=== PATIENT | female | born 1945 | race Caucasian/White ===

== ENCOUNTER 2017-09-11 10:38 | Emergency (ER) | payer OTHER ==
--- NOTE | 2017-09-11 11:13 | EDPHY ---
H & P Stated Complaint: RLQ ABD PAIN SINCE SATURDAY/ Time Seen by Provider: 09/11/17 10:51 HPI/ROS: CHIEF COMPLAINT: Right lower quadrant pain HISTORY OF PRESENT ILLNESS: 72-year-old female s/p cesar 6wks ago presents with right lower quadrant pain. Onset of pain 2 days ago. The pain is constant and increases in the sitting position and is alleviated while supine. The pain is improved today. Normal appetite. No associated symptoms. REVIEW OF SYSTEMS: complete 10 point ROS negative except at noted in the HPI - Personal History Current Tetanus/Diphtheria Vaccine: Yes - Medical/Surgical History Hx Asthma: No Hx Chronic Respiratory Disease: No Hx Diabetes: No Hx Cardiac Disease: No Hx Renal Disease: No Hx Cirrhosis: No Hx Alcoholism: No Hx HIV/AIDS: No Hx Splenectomy or Spleen Trauma: No Other PMH: CHOLY - Social History Smoking Status: Never smoked - Physical Exam Exam: General Appearance: Alert, pleasant Eyes: Pupils equal and round, no conjunctival pallor ENT, Mouth: Mucous membranes moist Neck: Normal inspection Respiratory: Lungs are clear to auscultation Cardiovascular: Regular rate and rhythm Gastrointestinal: Abdomen is soft, mild right lower quadrant tenderness Neurological: A&O, nonfocal, normal gait Skin: Warm and dry Extremities: Normal inspection Psychiatric: Mood and affect normal Constitutional: Initial Vital Signs Temperature (C) 37 C 09/11/17 10:43 Heart Rate 71 09/11/17 10:43 Respiratory Rate 16 09/11/17 10:43 Blood Pressure 127/82 H 09/11/17 10:43 O2 Sat (%) 95 09/11/17 10:43 O2 Delivery Mode Room Air Allergies/Adverse Reactions: amoxicillin [From Augmentin] Allergy (Verified 09/11/17 10:41) clavulanic acid [From Augmentin] Allergy (Verified 09/11/17 10:41) codeine Allergy (Verified 09/11/17 10:41) Home Medications: Medication Instructions Recorded Reevj-Muaes-Basz 10-160-12.5MG 09/11/17 Aspirin 81mg (*) 09/11/17 Esomeprazole Magnesium 09/11/17 Klor-Con M10 09/11/17 Metoprolol Succinate 09/11/17 Raloxifene HCl 09/11/17 Vesicare 09/11/17 Medical Decision Making - Diagnostics Imaging Results: Abdomen CT 09/11/17 11:38 Impression: 1. Post cholecystectomy without evidence of acute intra-abdominal pathology 2. Mild inflammatory changes associated with right subcostal surgical incision. No discrete fluid. Findings were communicated by telephone with Dr. LILLIE WHITESIDE at 09/11/2017 12: 26 ED Course/Re-evaluation: This patient presents with right lower quadrant pain, concern for possible appendicitis. Clinically there is no evidence of a postoperative infection. Declines pain medication. CT scan of the abdomen pelvis obtained and is unremarkable. Abdominal exam remains benign and unchanged. The patient will follow up with primary care physician. Ibuprofen instructions given. Differential Diagnosis: Differential diagnosis includes though it is not limited to appendicitis, cholecystitis, diverticulitis, pyelonephritis, bowel perforation, small bowel obstruction. - Data Points Laboratory Results: Laboratory Results 09/11/17 11:00 09/11/17 11:00 Departure - Departure Disposition: Home, Routine, Self-Care Clinical Impression: Abdominal pain Qualifiers: Abdominal location: right lower quadrant Qualified Code(s): R10.31 - Right lower quadrant pain Condition: Good Instructions: Acute Abdominal Pain (ED) Additional Instructions: Sometimes we are unable to diagnose an obvious cause of abdominal pain in the Emergency Department. Based upon our evaluation today, we see no obvious explanation for your pain. Because more serious conditions can be difficult to diagnose early in the course of their presentation, we ask that you return to the Emergency Department in 12-24 hours for a recheck if you are still having pain. This is necessary to exclude the development of a more serious condition such as appendicitis or other intra-abdominal emergency. In the event your pain markedly increases before that time or you develop intractable vomiting or fever return to the Emergency Department immediately. Referrals: [facility] [Other] - As per Instructions
[2017-09-11 11:27] LABS: PLATELET COUNT 269 10^3/uL (150-400)
[2017-09-11] MEDS ORDERED: IOPAMIDOL (ISOVUE-300) 100 ML BTL ONE (11:52)
[2017-09-11 12:32] VITALS: BP 137/80
== END 2017-09-11 12:34 | disposition home or self-care (01) ==
DX: R10.31 Right lower quadrant pain (principal); Z79.82 Long term (current) use of aspirin; Z90.49 Acquired absence of other specified parts of digestive tract
CPT/HCPCS: 74177; 99285; Q9967